=== PATIENT | female | born 1990 | race Hispanic/Latino ===

== ENCOUNTER 2021-03-20 11:34 | Emergency (ER) | payer SELFPAY ==
[2021-03-20] MEDS ORDERED: Dexamethasone 10 MG/ML VIAL ONE (12:42)
[2021-03-20] MEDS ORDERED: Diazepam 5 MG TAB ONE (12:43)
[2021-03-20] MEDS ORDERED: Ketorolac Tromethamine 30 MG/ML VIAL ONE (12:43)
[2021-03-20] MEDS ORDERED: Morphine 4 MG/ML VIAL ONE (13:43)
== END 2021-03-20 14:28 | disposition home or self-care (01) ==
LOC: CSHERS 11:34
DX: M51.36 Other intervertebral disc degeneration, lumbar region (principal); M62.838 Other muscle spasm
CPT/HCPCS: 72100; 96372; J1100; J1885; J2270